=== PATIENT | female | born 1975 | race Caucasian/White ===

== ENCOUNTER 2018-09-29 16:46 | Emergency (ER) | payer MEDICAID, SELFPAY ==
[2018-09-29 16:47] VITALS: BP 100/56; PULSE 127; RESP 18; TEMP 38.3; O2SAT 94; BMI 19.9
--- NOTE | 2018-09-29 17:22 | RAD_ITS ---
STUDY: X-RAY CHEST REASON FOR EXAM: Female, 43 years old. Cough and congestion and fever and dizziness. TECHNIQUE: Frontal and lateral views of the chest. COMPARISON: None. FINDINGS: There is hyperinflation of the lungs consistent with chronic obstructive lung disease (COPD). There is no demonstrated pleural abnormality. Normal size heart. Normal mediastinum and larissa. There is prominence of the pulmonary hilar arteries without peripheral pulmonary vascular congestion, suggesting pulmonary hypertension. Normal visualized aortic arch and descending thoracic aorta. Normal visualized thoracic spine. Normal visualized ribs, clavicles, and shoulders. There is no demonstrated abnormality of the visualized soft tissue structures of the upper abdomen. RAD/Chest PA and Lateral IMPRESSION: There are findings consistent with COPD. There is no evidence of acute chest disease. Electronically Signed: Stephan Woodruff MD at 17:41 EDT , Service support ,
--- NOTE | 2018-09-29 17:28 | ED.DCSUM_ITS ---
- ER Visit Summary Date of Service: 09/29/18 Chief Complaint: Fever and cough History of Present Illness: The patient is a 43 F history of anemia and prior appendectomy. Patient states for the last 6 days she has had fever chills and cough. History of the urgent care yesterday told it was a viral syndrome and was placed on Mucinex and inhaler. He did not do any labs or chest x-ray according to the patient yesterday. She is feeling worse today and want to be evaluated. She denies vomiting or diarrhea. No dysuria. Physical Examination: Middle-aged female. No acute distress. Blood pressure 100/56. Pulse ox 94% on room air. Temperature 101. She does not look septic or toxic. No acute distress. HEENT exam nasal congestion. Clear. Posterior pharynx moist and pink. No erythema or exudate. No trouble swallowing or breathing. No stridor or drooling. TMs unremarkable. Neck nontender. Trachea midline. No lymphadenopathy. No meningismus. Lungs cough. But no rales, rhonchi or wheezing. Heart tachycardic no murmur. Abdomen soft and nontender normal bowel sounds without peritoneal signs. Patient is moving all 4 extremities. Neurovascular intact. Calves are nontender without edema. Skin is unremarkable. Back is nontender. Neurologically she is awake and alert with no focal deficits. Test Results: Chest x-ray AP and lateral 2 views shows no acute abnormality read both by myself and radiologist. No pneumonia. Normal cardiac silhouette and mediastinum. Emergency Department Course and Treatment: Tylenol p.o. for fever Treatment Plan: Repeat exam patient is doing well 1818. We went over her chest x-ray results. Fluids and rest. Tylenol and Motrin. Follow-up with not improving. Disposition: Discharge Impression: Acute bronchitis This note was generated with [employer] dictation software. It may contain incorrect words, spelling, and punctuation that were not noted in review of the chart prior to signing ED Disposition - Plan for ED Patient: Referrals: Care Physician,No Primary [Primary Care Provider] -
[2018-09-29] MEDS: Acetaminophen 500 MG Tablet 1000 MG PO (17:38)
--- NOTE | 2018-09-29 18:23 | ED.DEP ---
ED Disposition - Plan for ED Patient: Disposition: Home or Assisted Living Instructions: Acute Bronchitis Prescriptions: Azithromycin [Zithromax Z-Pranav] 250 mg PO UD #1 box Referrals: Bertin Patel MD [STAFF PHYSICIAN] - 1 Week if not improving Additional Instructions: Plenty of fluids and rest. Alternate Tylenol and Motrin for fever. Only start the antibiotic if you are getting worse in the next 4-5 days. Most likely this is a viral infection and should get better with time
[2018-09-29 18:35] VITALS: BP 90/63; PULSE 110; RESP 16; O2SAT 96
== END 2018-09-29 18:36 | disposition home or self-care (01) ==
PROVIDERS: Emergency Provider Emergency Medicine
DX: J20.9 Acute bronchitis, unspecified (principal)
CPT/HCPCS: 71046; 99283

== ENCOUNTER 2023-06-15 12:25 | Emergency (ER) | payer OTHER, SELFPAY ==
[2023-06-15 12:26] VITALS: BP 119/58; PULSE 75; RESP 18; TEMP 36.1; O2SAT 100; BMI 21.6
--- NOTE | 2023-06-15 12:32 | EX.ED.GENINJ ---
HPI History of Present Illness Chief Complaint: Laceration PFSH PFS Medical History no medical history Home Medications NK 06/15/23 [History Last Taken Unknown] Allergy/AdvReac Type Severity Reaction Status Date / Time No Known Allergies Allergy Verified 06/15/23 12:27 Family History no significant family his Surgical History no surgical history Social History Smoking Status: Never smoker EXAM Physical Exam Const Vital Signs: 06/15/23 12:26 Temperature 97 F L Temperature Source Temporal Pulse Rate 75 Respiratory Rate 18 Blood Pressure 119/58 L Blood Pressure Mean 78 Pulse Ox 100 Oxygen Delivery Method Room Air MDM MDM MDM Narrative Medical decision making narrative: HISTORY OF PRESENT ILLNESS: 48-year-old female notes laceration to left index finger from knife. REVIEW OF SYSTEMS: Pertinent positives: Laceration Pertinent negatives: Loss of sensation or movement PHYSICAL EXAM: Nursing triage notes reviewed, Vital signs reviewed Constitutional: please see mdm Extremities: No edema, intact flexor digitorum superficialis and profundus tendons, intact extensor tendons Neuro: No intact 5/5 strength with ok sign (median), intact finger abduction (ulnar) intact wrist extension (radial n). Intact sensation in the radial, ulnar, and median nerve distributions. Skin: No rash or lesions noted MEDICAL DECISION MAKING: Chief Complaint: Laceration External records reviewed: Recent ED visit Factors affecting care: Asthma Social determinants of health: none [facility] Narrative: She was hemodynamically stable, afebrile, nontoxic-appearing The patient suffered lacerations to the left second digit On exam there was no evidence of foreign bodies. There was no evidence of neurovascular injury. Patient had a normal distal vascular exam, and had intact ROM and sensation. There was also no evidence of tendon injury, with normal distal full range of motion, flexion, extension, abduction, abduction. There is no evidence of local joint space involvement at this time. Wound care applied (irrigation and/or local cleansing solution). Laceration repair was then performed please see procedure note. The patient was given signs and symptoms warnings for infection, such as increasing pain, redness, swelling, associated heat, pus or fever. Patient was given instructions for timely follow-up for removal. Patient agreed with the plan of care Procedure: Laceration repair. The procedure was performed by myself. Indication: Wound repair Risks and benefits: risks, benefits and alternatives were discussed Consent: Consent was obtained. Wound Details: There is a curvilinear laceration noted to the lateral surface of the distal second digit with no nail involvement, no foreign bodies noted, was approximately 1 cm in length, no tendon involvement, intact flexion and extension of the left second digit. Patient is right-hand dominant. Anesthesia: 1% lidocaine, digital block Wound prep: Patient was prepped and draped in the usual sterile fashion. Tetanus: Updated within the last 10 years Irrigation Solution: Saline Wound Preparation: Soaked in chlorhexidine gauze The wound was explored to its base in a bloodless field. Procedure Description: 3 some interrupted 5-0 Chromic Gut Zirbel sutures were placed with close approximation. Patient tolerated the procedure well with no immediate complications The patient and/or family, caregivers express understanding. The patient and/or family, caregivers agrees with the plan. Shared decision making: I will have a discussion with the patient and or visitors regarding risk/benefits of further testing or admission. They will be made aware of of the risk/benefits inherent in this decision they will be given the opportunity to voice understanding. Total critical care time today provided was at least 0 minutes. This excludes separately billable procedures. Critical care time (if documented) is secondary to the patient having high probability of clinically significant/life threatening deterioration in the patient's condition which required my urgent intervention. Impression: 1. Finger laceration Dispo: Discharge home Discharge Plan Triage Chief Complaint: Laceration ED Provider: Luis Alberto Rojas Dx/Rx/DC Orders Instructions: ED Laceration, All Closures Prescriptions: No Action NK Primary Care Provider: PodShelley hernandez NP Referrals: Shirley Queen MD [Med Staff - Director Of [employer]aur[employer]] - Activity Restrictions/Additional Instructions: Thank you for trusting us with your care today! Please take Tylenol (2 pills, 650 mg), ibuprofen (2 pills, 400 mg) every 6 hours as needed for pain and fever control. After 24 hours may also apply ice for pain and inflammation control. Please keep your wound clean and dry for the first 24 hours. Please use peroxide and Neosporin for the first 24 to 48 hours. After the first 48 hours you may use soap and water for cleansing daily. Please keep your wound covered. Please return to the emergency department if your symptoms change or worsen. Specifically if you develop the following: increasing pain, redness, swelling, associated heat, pus or fever. Please follow with your primary care physician for further outpatient evaluation and management. Disposition Disposition: Home, Self Care Discharge Date/Time: 06/15/23 13:26
[2023-06-15] MEDS: Lidocaine 1% (20 ml mdv) 20 ML Vial 5 ML INFILT (12:39)
== END 2023-06-15 13:26 | disposition home or self-care (01) ==
LOC: ED 13:18
PROVIDERS: Emergency Provider Emergency Medicine; PCP Nurse Practitioner Primary Care; Visit Provider Emergency Medicine
DX: S61.211A Laceration without foreign body of left index finger without damage to nail, initial encounter (principal); W26.0XXA Contact with knife, initial encounter
CPT/HCPCS: 12001; 99282